=== PATIENT | female | born 1975 | race Caucasian/White ===

== ENCOUNTER → 2020-10-20 | Outpatient (CLI) | payer OTHER, SELFPAY | END | disposition home or self-care (01) | LOC: LABSPEC 10:13 | PROVIDERS: Referring Provider Physician Assistant Surgical; Visit Provider Physician Assistant Surgical | DX: U07.1 COVID-19 (principal) | CPT/HCPCS: 87635; U0005; U0003 ==

== ENCOUNTER 2022-07-15 06:58 | Day surgery (SDC) | payer BC, SELFPAY ==
[2022-07-15 07:35] LABS: Internal QC Validated? YES +Cl - CLEAR BKGD; Pregnancy, Urine Negative Negative
[2022-07-15 07:36] VITALS: BP 145/91; PULSE 68; RESP 16; TEMP 36.6; O2SAT 96; BMI 44.2
[2022-07-15 07:43] LABS: Hematocrit 38.5 % (37-47); Hemoglobin 12.4 g/dL (12.0-15.0); Mean Corp Hgb Conc 32.2 g/dL (32-36); Mean Corpuscular Hgb 27.3 pg (27.0-32.0); Mean Corpuscular Volume 84.8 fL (81-99); Mean Platelet Vol. 10.4 fl (6.2-12.0); Platelet Count 269 K/mm3 (150-450); RBC Distribution Width CV 13.2 % (11.6-14.6); Red Blood Count 4.54 M/mm3 (4.2-5.4); White Blood Count 6.1 K/mm3 (4.4-11.0)
[2022-07-15] MEDS: Lactated Ringers 1,000 ML 15 ML IV (07:46)
[2022-07-15] MEDS: Acetaminophen 500 MG Tablet 1000 MG PO (07:48)
[2022-07-15] MEDS: Ketorolac 30 MG/ML Syringe IV (07:48)
--- NOTE | 2022-07-15 08:01 | PCM.HP.BLA ---
History and Physical Date of Admission: 07/15/22 46-year-old female presenting for hysteroscopy D&C possible polypectomy, progestin IUD insertion for endometrial hyperplasia without atypia and abnormal uterine bleeding. Past medical cyst history is significant for Berenice's thyroiditis and resulting hypothyroidism Past surgical history significant for as sure and tonsillectomy Recent medications include Synthroid, Crestor, vitamin D and Transexemic acid Allergies-KNDA Social history: She denies any tobacco alcohol or drug use Review of systems general: No fevers or chills Heme: No history of prolonged bleeding easy bruising or VTE [place] no shortness of breath or cough Physical exam: See vitals General: Awake, alert, no acute distress Skin warm dry intact Lungs clear to auscultation bilateraly Heart: S1-S2 regular rate and rhythm Assessment & Plan Assessment/Plan (1) Endometrial hyperplasia without atypia: (2) Abnormal uterine bleeding (AUB): PLAN: Risk benefits and alternatives to hysteroscopy D&C with progestin IUD insertion were discussed with patient, her questions were answered to her satisfaction she desires to proceed. IUD use with esters is off label. However, all of the good idea of how far the eschar extends into the endometrial cavity when I do the D&C. But felt that there is a high risk of entanglement, will not place the IUD. However, risk of entanglement complication is relatively low. Patient's questions were answered to her satisfaction and consent was signed and she desires to proceed.
[2022-07-15] MEDS: Levonorgestrel IUD (Liletta) 1 EACH INTRA-UTER (08:25)
--- NOTE | 2022-07-15 08:25 | EMB_PTH ---
PATIENT: CESAR HOLLINS LOC: [facility] [place] U#:[id number] AGE/SX: 46/F ROOM: RE07/15/[address]: Dr. Cirsta Capps MD : 1975 BED: DIS: 07/15/2022 SPEC #: [id number] RECD: 07/15/22 09:54 STATUS: ISMA REMayra #: [id number] DARIEL: 07/15/22 08:[address]: Crista Capps DEPT: SURGICAL PATHOLOGY RECD BY: Marline Quintanilla ENTERED: 07/15/22 10:36 SP TYPE: ENDOM BX/C JAME DR: Dr. Otis Corona DO Tissues: Endometrium, NOS Procedures: Surgery Specimen Level IV HEADER OPERATION: Hysteroscopy, dilation and curettage, IUD insertion PRE-OP DIAGNOSIS: Endometrial hyperplasia without atypia; abnormal uterine bleeding TISSUE SUBMITTED: Endometrial curettings MICROSCOPIC DIAGNOSIS Endometrial curettings: Simple endometrial hyperplasia without atypia. See comment. SAHIL:maria ines 07/18/2022 COMMENT Clinical correlation and appropriate follow up are necessary. Case has been reviewed in consultation with Dr. Heredia who concurs with the above diagnosis. IDC:AM MICROSCOPIC DESCRIPTION Slides are reviewed. GROSS DESCRIPTION Received in fixative is one container labeled with the patient's name and designated endometrial curettings. The specimen consists of multiple irregular fragments of pink soft tissue that in aggregate measure 3.0 x 2.5 x 0.3 cm. The specimen is totally submitted in one cassette. / SAHIL:maria ines 07/15/2022 TC:5 CPT: 52398
[2022-07-15] MEDS: Lidocaine 1% /Epi 1:100 (20ml) 20 ML Vial (08:30)
--- NOTE | 2022-07-15 08:34 | PCM.DC ---
Discharge Instructions Diet Discharge Diet: No restrictions Activity Discharge Activity: May Drive (07/16/22) and May Take a Tub Bath (in 1-2 weeks) Return to work on:: 07/18/22 May shower in (days): 1 May resume sexual activity in: 1-2 weeks and 2 weeks Lifting Restrictions: none Dressing / Incision Call your doctor if your incision/area has: Sudden Increased Bleeding and Foul Smelling Discharge Call your doctor if you observe: Fever of 101 or Higher and Using more than 1 pad per hour (for 2 hrs in a row) Follow Up Care Please Follow Up With: Crista Capps MD When: As needed. We will contact you with pathology in approximately one week. Schedule a follow up in 2-3 months or as needed. Call [phone] or send a [employer] message with questions or to make an appointment or with any concerns. Test Results: Test results from this visit will be discussed in further detail at your follow-up appointment, if applicable. Discharge Plan Admission Primary Reason for Your Visit: Hysteroscopy Dilation and curretage with Lilletta IUD insertion Attending Provider: Crista Capps Primary Care Provider: Otis Corona Discharge Orders/Prescriptions Prescriptions: No Action levothyroxine 125 mcg capsule 125 mcg PO DAILY rosuvastatin 10 mg tablet 10 mg PO DAILY Referrals / Follow Up: Otis Corona DO [Primary Care Provider] - Disposition Disposition (needs filled in before D/C Order can be placed): Home, Self Care
[2022-07-15 08:50] VITALS: BP 124/82; BP 145/91; PULSE 88; RESP 16; TEMP 36.8; O2SAT 92
--- NOTE | 2022-07-15 08:50 | OP.PCM_ITS ---
Problems Associated Problem List Diagnoses (1) Abnormal uterine bleeding (AUB): (2) Endometrial hyperplasia without atypia: Report of Operation Date of Procedure: 07/15/22 Pre-Operative Diagnosis: AUB, endometrial hyperplasia without atypia Post-Operative Diagnosis: same Surgery/Procedure Performed:: Hysteroscopy D&C with Lilletta IUD insertion Description of Surgical Findings:: lush endometrium, normal tubal ostia, normal cervix and vagina Surgeon: Crista Capps silk examiner: None Type of Anesthesia: MAC/Supplemental/Local Anesthesiologist: Jordan Yanez Special Medications: none Specimen's removed: endometrial curettings Drains: none Estimated Blood Loss (mL): 10 Fluids Replaced: 500 Description of Procedure: The patient was taken to the OR where she was prepped and draped in dorsal lithotomy position. The weighted speculum was placed in the vagina and the anterior lip of the cervix was grasped with a single-tooth tenaculum. A paracervical block was administered with [1% lidocaine with 1-100,000 epinephrine solution]. The cervix was dilated serially with Hegar dilators. The [5mm] hysteroscope was placed into the uterine cavity and the above findings were noted. Bilateral tubal ostia [were] identified. The hysteroscope was removed. A gentle sharp curettage was done of the uterine cavity. The Liletta IUD was then readied and inserted in the usual sterile fashion. The strings were cut to 2.5 cm. The instruments were removed from the vagina. The specimen was handed off and sent to pathology. All sponge and needle counts were correct. Vaginal sweep was performed by me. The patient was awakened and taken to the recovery room in stable condition. Hysteroscopic fluid deficit is 50 cc of normal saline Grafts/Implants Used: Liletta IUD Procedure Start Time: 08:36 Procedure Stop Time: 08:43 Complications none Admit VTE Documentation VTE Present on Admission: No VTE Mechan Device Prophylaxis: SCD's Reason prophylaxis not ordered:: Treatment Not Indicated
[2022-07-15 08:55] VITALS: BP 124/89; BP 145/91; PULSE 83; RESP 16; O2SAT 92
[2022-07-15 09:00] VITALS: BP 143/84; BP 145/91; PULSE 80; RESP 16; O2SAT 97
[2022-07-15 09:05] VITALS: BP 130/83; BP 145/91; PULSE 85; RESP 16; TEMP 36.8; O2SAT 93
[2022-07-15 09:40] VITALS: BP 145/91
== END 2022-07-15 10:01 | disposition home or self-care (01) ==
LOC: SDC 07:00 → AC 07:01
PROVIDERS: PCP Student in an Organized Health Care Education/Training Program; Referring Provider Obstetrics & Gynecology; Visit Provider Obstetrics & Gynecology
PROC: 0UDB8ZZ Extraction of Endometrium, Via Natural or Artificial Opening Endoscopic (ICD-10-PCS; CPT 58558; principal; 2022-07-15 08:15)
DX: Z30.430 Encounter for insertion of intrauterine contraceptive device (principal); N85.01 Benign endometrial hyperplasia; N93.9 Abnormal uterine and vaginal bleeding, unspecified; E03.9 Hypothyroidism, unspecified; E78.00 Pure hypercholesterolemia, unspecified; Z79.899 Other long term (current) drug therapy
CPT/HCPCS: 58558; 58300; 00952; 81025; 85027; 88305; J7120; J2405

== ENCOUNTER → 2024-04-17 | Outpatient (CLI) | payer BC, SELFPAY ==
--- NOTE | 2024-04-17 15:30 | LES_PTH ---
PATIENT: CESAR HOLLINS LOC: [facility] #:[id number] AGE/SX: 48/F ROOM: RE04/17/[address]: Dr. Kwame Ledesma MD : 1975 BED: DIS: 04/17/2024 SPEC #: [id number] RECD: 04/18/24 07:26 STATUS: ISMA ANDERSON #: [id number] DARIEL: 04/17/24 15:[address]: Kwame Ledesma DEPT: SURGICAL PATHOLOGY RECD BY: Marline Quintanilla ENTERED: 04/18/24 07:26 SP TYPE: Lesion OTHR DR: Dr. Otis Corona, DO Tissues: Oral cavity, NOS Procedures: Surgery Specimen Level IV HEADER OPERATION: Permanent pathology PRE-OP DIAGNOSIS: Oral lesion TISSUE SUBMITTED: Roof of mouth lesion biopsy MICROSCOPIC DIAGNOSIS Oral lesion, roof of mouth, biopsy: Squamous papilloma. Negative for malignancy. SJ.mr 04/19/2024 MICROSCOPIC DESCRIPTION Slides are reviewed. GROSS DESCRIPTION Received in fixative is one container labeled with the patient's name and designated Roof of mouth lesion. The specimen consists of a piece of rose-white mucosal tissue measuring 0.4 x 0.3 x 0.2cm. The entire specimen is submitted in one cassette. SAHIL. 04/18/2024 TC:1 CPT:97794
== END | disposition home or self-care (01) ==
LOC: LABSPEC 16:45
PROVIDERS: PCP Student in an Organized Health Care Education/Training Program; Referring Provider Otolaryngology; Visit Provider Otolaryngology
DX: D10.30 Benign neoplasm of unspecified part of mouth (principal)
CPT/HCPCS: 88305

== ENCOUNTER 2024-07-12 06:05 | Day surgery (SDC) | payer BC, SELFPAY ==
--- NOTE | 2024-06-25 17:06 | HP.PCM_ITS ---
History and Physical Date of Admission: 07/12/24 HPI: The patient is a 48 year old female presenting for pre-operative visit. She is scheduled for hysterocopy D&C with polyp resection, IUD removal and IUD insertion, for AUB, endometrial polyp on 07/12/24. Procedure discussed along with risks, benefits and complications. Other alternatives discussed for management. Consent form signed? Yes. ? ? PAST MEDICAL HISTORY PAST MEDICAL HISTORYDiagnosisDate?Endometrial hyperplasia without glyyvj03/2023?Hypertension??Eowreytzunkyqp27/21/2014?Berenice's syndrome ? ? PAST SURGICAL HISTORY PAST SURGICAL HISTORYProcedureLateralityDate?ESSURE???HYSTEROSCOPY BX ENDOMETRIUM&/POLYPC W/WO D&C?07/15/2022?hysteroscopy D&C w/ IUD insertion ?TONSILLECTOMY & ADENOIDECTOMY AGE 13/>? CURRENT MEDICATIONS Current Outpatient MedicationsMedicationSigDispenseRefill?amLODIPine (NORVASC) 5 mg tabletTake 1 tablet by mouth once daily.90 tablet3?lisinopril (ZESTRIL) 40 mg tabletTake 1 tablet by mouth once daily.90 tablet3?rosuvastatin (CRESTOR) 10 mg tabletTake 1 tablet by mouth daily at bedtime. For lbalcpjlkjb15 tablet3?levothyroxine (SYNTHROID) 125 mcg tabletTake one tablet six days a week9 0 tablet3?levonorgestrel (LILETTA) 20.4 mcg/24 hrs (8 yrs) 52 mg IUD1 Each by INTRAUTERINE route as directed.1 Each0?No current facility-administered medications for this visit. ? ? ALLERGIES: Patient has no known allergies. ? PERSONAL HISTORY: SOCIAL HISTORY Social History?Tobacco Use?Smoking status:Never?Smokeless tobacco:NeverVaping Use?Vaping status:Never UsedSubstance Use Topics?Alcohol use:No?Drug use:No ? FAMILY HISTORY: FAMILY HISTORY FAMILY HISTORY ProblemRelationAge of Onset ?HypertensionMother??DiabetesFather??HeartFather?? CHF ?HypertensionFather??GISister?? colitis?Breast [id number]?Skin Can cerSister??Breast CancerMaternal Grandmother??Colon CancerMaternal Grandmother??HeartPaternal Grandfather?? UT?Breast CancerMaternal Aunt??CancerMaternal Aunt?? bladder ? ? REVIEW OF SYMPTOMS: GENERAL: denies fevers or chills ENDOCRINOLOGY: has not been on steroids Cardiology : denies palpitations or chest pain Respiratory: denies SOB or cough Hematology: denies history of prolonged bleeding or easy bruising or VTE Allergy: Denies history of personal or family history of allergy to anesthesia ? PHYSICAL EXAMINATION: ? VITALS: Blood pressure 126/84, pulse 77, height 162.6 cm (5' 4), weight 114.3 kg (252 lb), last menstrual period 06/27/2022, SpO2 97%. ? GENERAL: The patient is well nourished, well hydrated in no acute distress. , The patient is oriented to time, place, and person. NECK: Supple. No lynphadenopathy, normal thyroid, no thyromegaly. LUNGS: Clear to auscultation bilaterally. no wheezes, rhonchi or rales HEART: Regular rate and rhythm, Normal heart sounds, and No murmurs or gallops ? IMPRESSION: AUB, endometrial polyp, IUD removal and IUD insertion ? PLAN: The risks/benefits/alternatives and personal involved for the planned hysteroscopy D&C with polyp resection, IUD removal and IUD insertion were reviewed with the patient. Her questions were answered to her satisfaction and she desires to proceed. Consent was signed. I reviewed with her postop instructions and expectations. ? ? I have reviewed and updated past medical and surgical history, medications and allergies Assessment & Plan Assessment/Plan (1) Endometrial polyp: (2) Abnormal uterine bleeding (AUB): (3) Encounter for IUD removal and reinsertion:
[2024-07-12] VITALS (10 sets, daily range): BP systolic 107–133; BP diastolic 74–88; PULSE 65–84; RESP 14–18; TEMP 36.2–36.8; O2SAT 88–96; BMI 44.5
[2024-07-12] MEDS: Lactated Ringers 1,000 ML 15 ML IV (06:52)
[2024-07-12] MEDS: Ketorolac 30 MG/ML Syringe IV (06:52)
[2024-07-12] MEDS: Acetaminophen 500 MG Tablet 1000 MG PO (06:52)
[2024-07-12 06:54] LABS: Hematocrit 38.6 % (37-47); Internal QC Validated? YES +Cl - CLEAR BKGD; Mean Corp Hgb Conc 33.7 g/dL (32-36); Mean Corpuscular Hgb 28.3 pg (27.0-32.0); Mean Corpuscular Volume 84.1 fL (81-99); Mean Platelet Vol. 10.3 fl (6.2-12.0); Platelet Count 290 K/mm3 (150-450); Pregnancy, Urine Negative Negative; RBC Distribution Width SD 39.8 fl (35.1-43.9); Red Blood Count 4.59 M/mm3 (4.2-5.4); White Blood Count 6.8 K/mm3 (4.4-11.0)
--- NOTE | 2024-07-12 07:03 | PCM.PRE.AN2 ---
ASA Classification* ASA Classification ASA Classification: 3 Assessment & Plan Anesthesia* Anesthesia Assessment Anesthesia Assessment: Discussed sedation and/or anesthesia options, risks, benefits, and alternatives with patient/parents/legal guardian/POA. Questions invited. The patient/parents/legal guardian/POA seems to understand and agrees to proceed with anesthesia plan. Reviewed the physical assessment, medical history, allergy history and patient home medications list prior to surgery/procedure/anesthetic and documented any changes. Performed airway and anesthesia risk assessments. Anesthesia Type Anesthesia Type: MAC Anesthesia Focused Assessment* Temperature: 98.2 F Pulse Rate: 84 Blood Pressure: 133/88 Respiratory Rate: 16 Pulse Ox: 96 Airway Assessment Mouth opens: >3 cm Mallampati Score: II Focused Labs Anesthesia Preop lab: CBC WBC 6.8 K/mm3 (4.4-11.0) 07/12/24 06:23 07/12/24 RBC 4.59 M/mm3 (4.2-5.4) 07/12/24 06:23 07/12/24 Hgb 13.0 g/dL (12.0-15.0) 07/12/24 06:23 07/12/24 Hct 38.6 % (37-47) 07/12/24 06:23 07/12/24 Plt Count 290 K/mm3 (150-450) 07/12/24 06:23 07/12/24 CHEMISTRY Glucose 94 mg/dL (70-110) 05/23/14 07:45 05/23/14 COAG Urine Test Negative Negative 07/12/24 06:23 07/12/24 Pre-Assessment Diagnosis/Proposed Procedure Planned Operative Procedure(s): HYSTEROSCOPY D&C IUD REMOVAL AND NEW IUD INSERTION,POLYP RESECTION Anesthesia History Anesthesia History - object oriented programmer: Anesthesia History - object oriented programmer Hx Hospitalization No 06/25/24 13:21 Any Problems With Anesthesia No 06/25/24 13:21 Cholinesterase deficiency No 06/25/24 13:21 You/Your Family Experience No 06/25/24 13:21 fever (hyperthermia) with Relationship Recent Exposure to Contagious No 07/12/24 06:35 Disease Does patient have nerve No 06/25/24 13:21 stimulator Patient instructed to have device shut off --Does patient have Pacemaker No 07/12/24 06:35 or ICD? When Was Last Pacemaker Check QUESTION #4 FULL TEXT: You/Your Family Experience fever (hyperthermia) with Anesthesia Last Oral Intake Last Oral intake: Last Oral Intake NPO since 20:00 07/12/24 06:35 Meds taken in AM with sips of water? Meds patient instructed to take am of surgery PONV PONV - object oriented programmer: PONV - object oriented programmer Female Yes 06/25/24 13:21 HX of Motion Sickness No 06/25/24 13:21 HX of N/V After Surgery No 06/25/24 13:21 Non-Smoker Yes 06/25/24 13:21 Duration of Surgery greater No 06/25/24 13:21 than 60 minutes Number of Risk Factors 2 06/25/24 13:21 PONV Score Moderate Risk 06/25/24 13:21 Height & Weight Height & Weight: Anesthesia: Height & Weight Height 5 ft 3 in 07/12/24 06:35 Weight: 114 kg 07/12/24 06:35 Body Mass Index (BMI) 44.5 07/12/24 06:35 Respiratory Assessment Respiratory Assessment - object oriented programmer: Respiratory Tract Infection Hx - object oriented programmer Hx Respiratory Tract Infection No 06/25/24 13:21 STOP Sleep Apnea STOP Sleep Apnea - object oriented programmer: STOP Sleep Apnea - object oriented programmer Hx Hypertension Yes: CONTROLLED WITH MED 06/25/24 13:21 Hx Sleep Apnea No 06/25/24 13:21 CPAP BIPAP Do you snore loudly (louder No 06/25/24 13:21 than talking or can be heard Do you often feel tired/ No 06/25/24 13:21 fatigued/ sleepy during daytime? Has anyone observed you stop No 06/25/24 13:21 breathing during sleep? STOP Results Negative 06/25/24 13:21 QUESTION #5 FULL TEXT : Do you snore loudly (louder than talking or can be heard through closed doors)? 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 Specify any problems Hx of Preganancy in last 3 No 06/25/24 13:21 Months Nurse Filling Out Transfusion DSCHRIBER 06/25/24 13:21 & Questions: Date: 06/25/24 06/25/24 13:21 Time: 13:23 06/25/24 13:21 Patient unable to answer at this time (ie. confused, unrespo /Reproduction History /Reproductive History - object oriented programmer: /Reproductive Hx- object oriented programmer Hx Now No 06/25/24 13:21 Gestational Age (in weeks): EDC: Hx Hx Para Hx Section SAB No 06/25/24 13:21 Active Medications Active Medications: Current Medications Generic Name Dose Route Start Last Admin Trade Name Rd PRN Reason Stop Dose Admin Acetaminophen 1,000 mg 07/12/24 07:30 Acetaminophen 500 Mg Tablet PO 07/12/24 07:31 X1 ONE Lactated Ringer's 1,000 mls @ 15 mls/hr 07/12/24 06:15 IV .Q48H [place] Ketorolac Tromethamine 30 mg 07/12/24 07:30 Ketorolac 30 Mg/Ml Syringe IV 07/12/24 07:31 X1 ONE Levonorgestrel 1 each 07/12/24 07:30 Levonorgestrel Iud (Liletta) INTRA-UTER 07/12/24 07:31 X1 ONE PFSH Medical History Wears glasses Thyroid disease High cholesterol Non-smoker History of edema Home Medications ?Medication ?Instructions ?Recorded ?Last Taken ?Type levothyroxine 125 mcg capsule 125 mcg PO SUMOTUWETHFR 10/20/20 07/12/24 05:00 History rosuvastatin 10 mg tablet 10 mg PO QHS 10/20/20 07/11/24 History amlodipine 5 mg tablet 5 mg PO DAILY 06/25/24 07/12/24 05:00 History lisinopril 40 mg tablet 40 mg PO DAILY 06/25/24 07/11/24 History Allergy/AdvReac Type Severity Reaction Status Date / Time No Known Allergies Allergy Verified 07/12/24 06:33 Surgical History History of hysteroscopy History of hysteroscopy Hx of tonsillectomy Social History Smoking Status: Never smoker Review of Systems (Anesthesia) ROS Narrative System reviewed and no additional complaints, except as documented.
--- NOTE | 2024-07-12 07:30 | EMB_PTH ---
PATIENT: CESAR HOLLINS LOC: [facility] [place] U#:[id number] AGE/SX: 48/F ROOM: RE07/12/[address]: Dr. Crista Capps MD : 1975 BED: DIS: 07/12/2024 SPEC #: [id number] RECD: 07/12/24 08:46 STATUS: ISMA ANDERSON #: [id number] DARIEL: 07/12/24 07:[address]: Crista Capps DEPT: SURGICAL PATHOLOGY RECD BY: Srinivasan Davis ENTERED: 07/12/24 10:15 SP TYPE: ENDOM BX/C NEGINHR DR: Dr. Otis Corona, DO Tissues: A - Endometrium, NOS Procedures: Surgery Specimen Level IV HEADER OPERATION: Hysterectomy, polypectomy PRE-OP DIAGNOSIS: Endometrial polyp, abnormal uterine bleeding, encounter for IUD removal and reinsertion TISSUE SUBMITTED: A- Endometrial curettings polyp MICROSCOPIC DIAGNOSIS A. Endometrial lining, curettage and polypectomy: * Fragments of inactive to weakly proliferative endometrium with pseudodecidual stromal change. * Fragments of smooth muscle. MICROSCOPIC DESCRIPTION Slides are reviewed. GROSS DESCRIPTION A. Received in formalin in a container labeled with the patient's name, date of , and endometrial curettings and polyp are multiple white-rose fragments of soft tissue admixed with blood and mucus measuring 2.3 x 1.5 x 1.0 cm in aggregate. Submitted in toto in A1-2. [facility] 07-15-2024 CPT:40220
--- NOTE | 2024-07-12 07:34 | PCM.DC ---
Discharge Instructions Diet Discharge Diet: No restrictions DC O2, CPAP, BIPAP needs Home O2 Discharge instructions: No Dressing / Incision May resume sexual activity in: 1 week Lifting Restrictions: none Dressing / Incision Call your doctor if your incision/area has: Sudden Increased Bleeding and Foul Smelling Discharge Call your doctor if you observe: Fever of 101 or Higher and Using more than 1 pad per hour (for 2 hrs in a row) Follow Up Care Please Follow Up With: Crista Capps MD When: You do not need a postop appointment. We will contact you with your pathology results. Call [phone] or send a [employer] message for questions Test Results: Test results from this visit will be discussed in further detail at your follow-up appointment, if applicable. Discharge Plan Admission Primary Reason for Your Visit: Hysteroscopy D&C with IUD removal and insertion Attending Provider: Crista Capps Primary Care Provider: Otis Corona Instructions Print Language: Luxembourgish Discharge Orders/Prescriptions Prescriptions: No Action levothyroxine 125 mcg capsule 125 mcg PO SUMOTUWETHFR rosuvastatin 10 mg tablet 10 mg PO QHS amlodipine 5 mg tablet 5 mg PO DAILY lisinopril 40 mg tablet 40 mg PO DAILY Referrals / Follow Up: Otis Corona DO [Primary Care Provider] - Disposition Disposition (needs filled in before D/C Order can be placed): Home, Self Care
[2024-07-12] MEDS: Levonorgestrel IUD (Liletta) 1 EACH INTRA-UTER (07:53)
--- NOTE | 2024-07-12 07:55 | OP.PCM_ITS ---
Problems Associated Problem List Diagnoses (1) Encounter for IUD removal and reinsertion: (2) Endometrial polyp: (3) Abnormal uterine bleeding (AUB): Operative Report (Standard) Operative Information Date of Procedure: 07/12/24 Pre-Operative Diagnosis: AUB, endometrial polyp, IUD removal and insertion Post-Operative Diagnosis: same Surgery/Procedure Performed: Hysteroscopy D&C with IUD removal and Liletta IUD insertion instant printer operator: No Type of Anesthesia: Local MAC RN Documented Start/Stop Times: Operation Date: 07/12/24 07:30 Case Time Into Pre-Op 07/12/24 06:14 Out of Pre-Op 07/12/24 07:27 Procedure Start Time: 07:42 Procedure Stop Time: 07:54 Select all DRAINS/GRAFTS/IMPLANTS that apply: None Estimated Blood Loss: 20 Fluids Replaced: 700 Specimen collected: Yes Description of specimen(s) removed: endometrial curettings and polyp Description of surgery: The patient was taken to the OR where she was prepped and draped in dorsal lithotomy position. The weighted speculum was placed in the vagina and the anterior lip of the cervix was grasped with a single-tooth tenaculum. The IUD was removed intact. The cervix was dilated serially with Hegar dilators. The Symphion hysteroscope was placed into the uterine cavity and the above findings were noted. Bilateral tubal ostia were identified. The symphion resection device was inserted. The polypoid appearing area was removed and a visual D&C was done of the endometrial cavity. No other focal abnormalities were noted.. The instruments were removed from the vagina. The specimen was handed off and sent to pathology. The uterus sounded to 9 cm and was anteverted. The Liletta IUD was inserted in the usual sterile fashion and deployed without difficulty and the strings were trimmed to 2 cm. All sponge and needle counts were correct. Vaginal sweep was performed by me. The patient was awakened and taken to the recovery room in stable condition. Calculated hysteroscopic fluid deficit is 500 cc of normal saline Surgical Findings: ragged endoemtrium, polypoid appearing area lower uterine segment Complications Complications: No Admit VTE Documentation VTE Present on Admission: No VTE Mechan Device Prophylaxis: SCD's VTE Pharm Prophylaxis ordered?: No Reason prophylaxis not ordered: Procedure Not Indicated
--- NOTE | 2024-07-12 08:04 | PCM.POST.ANE ---
Anesthesia: Postop Eval I Current Vital Signs Temperature: 97.1 F Pulse Rate: 76 Blood Pressure: 107/74 Respiratory Rate: 18 Pulse Ox: 93 Assessment Airway patent: Yes Spontaneous unlabored respirations: Yes nausea: No Vomiting: No Anesthesia Complication: No Fluid Hydration Crystalloid volume administer (ml): 800 Total IV fluid infused: 800 Progress Note Anesthesia document: Postop Eval 1 completed: Yes
[2024-07-12] MEDS: oxyCODONE 5 MG Tablet PO (08:59)
--- NOTE | 2024-07-12 09:03 | POSTOPAN2_ITS ---
Anesthesia Postop Eval I Sum Postop Eval Completion status Anesthesia document: Postop Eval 1 completed: Yes Anesthesia Postop Eval I Summary Anesthesia Postop Eval I Summary: Anesthesia Postop Eval I: Assessment Summary Airway patent Yes 07/12/24 08:04 BAND BUILDER.CSIR Spontaneous unlabored Yes 07/12/24 08:04 BAND BUILDER.CSIR respirations Mental status nausea No 07/12/24 08:04 BAND BUILDER.CSIR Vomiting No 07/12/24 08:04 BAND BUILDER.CSIR Anesthesia Postop Eval I: Fluid Summary Crystalloid volume administer 800 07/12/24 08:04 BAND BUILDER.CSIR (ml) Colloids volume administered ( ml) Blood Product volume administered (ml) Total IV fluid infused 800 07/12/24 08:04 BAND BUILDER.CSIR Anesthesia Postop Eval I: Summary Notes Anesthesia Complication No 07/12/24 08:04 BAND BUILDER.CSIR Anesthesia Complication Comment: Post-operative progress note Anesthesia: Postop Eval II Evaluation Mental status: Awake Pain Level: 0 nausea: No Vomiting: No
--- NOTE | 2024-07-12 09:03 | PCM.POSTANE2 ---
Anesthesia Postop Eval I Sum Postop Eval Completion status Anesthesia document: Postop Eval 1 completed: Yes Anesthesia Postop Eval I Summary Anesthesia Postop Eval I Summary: Anesthesia Postop Eval I: Assessment Summary Airway patent Yes 07/12/24 08:04 [email or web address] Spontaneous unlabored Yes 07/12/24 08:04 [email or web address] respirations Mental status nausea No 07/12/24 08:04 [email or web address] Vomiting No 07/12/24 08:04 [email or web address] Anesthesia Postop Eval I: Fluid Summary Crystalloid volume administer 800 07/12/24 08:04 [email or web address] (ml) Colloids volume administered ( ml) Blood Product volume administered (ml) Total IV fluid infused 800 07/12/24 08:04 [email or web address] Anesthesia Postop Eval I: Summary Notes Anesthesia Complication No 07/12/24 08:04 [email or web address] Anesthesia Complication Comment: Post-operative progress note Anesthesia: Postop Eval II Evaluation Mental status: Awake Pain Level: 0 nausea: No Vomiting: No
== END 2024-07-12 09:33 | disposition home or self-care (01) ==
LOC: SDC 06:11 → AC 06:21
PROVIDERS: PCP Student in an Organized Health Care Education/Training Program; Referring Provider Obstetrics & Gynecology; Visit Provider Obstetrics & Gynecology
PROC: 0UB98ZZ Excision of Uterus, Via Natural or Artificial Opening Endoscopic (ICD-10-PCS; CPT 58558; principal; 2024-07-12 07:15)
DX: Z30.433 Encounter for removal and reinsertion of intrauterine contraceptive device (principal); N93.9 Abnormal uterine and vaginal bleeding, unspecified; N84.0 Polyp of corpus uteri; Z79.899 Other long term (current) drug therapy
CPT/HCPCS: 58558; 58300; 58301; 00952; 81025; 85027; 88305; J2405